=== PATIENT | female | born 1995 | race Caucasian/White ===

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

== ENCOUNTER → 2017-06-06 | Outpatient (REF) | payer OTHER ==
[2017-06-06 20:26] LABS: APPEARANCE, URINE MANUAL TURBID (CLEAR); COLOR, URINE MANUAL RED (YELLOW)
[2017-06-06 20:27] LABS: GLUCOSE, URINE (UA) MANUAL OBSCURED mg/dL (NEGATIVE); KETONE, URINE MANUAL OBSCURED mg/dL (NEGATIVE); PH,URINE MAN OBSCURED UNITS (5.0 - 7.0); PROTEIN, URINE MANUAL OBSCURED mg/dL (NEGATIVE); UROBILINOGEN, URINE MANUAL OBSCURED mg/dl (NORMAL)
[2017-06-06 20:28] LABS: BILIRUBIN, URINE MANUAL OBSCURED (NEGATIVE); BLOOD URINE MANUAL OBSCURED (NEGATIVE); LEUKOCYTE ESTERASE, URINE MAN OBSCURED (NEGATIVE); MICROSCOPIC INDICATED? MAN YES (NO); NITRITE, URINE MANUAL OBSCURED (NEGATIVE)
[2017-06-06 20:43] LABS: BACTERIA, URINE SMALL AMOUNT; HYALINE CAST, URINE NONE SEEN /lpf (0-1); SQUAMOUS EPITHELIAL CELL URINE SMALL AMOUNT /hpf (SMALL AMT)
[2017-06-06 20:45] LABS: MICROSCOPIC EXAM PERFORMED
== END ==
LOC: M LAB REF 16:47
DX: N39.0 Urinary tract infection, site not specified (principal)
CPT/HCPCS: 81000

== ENCOUNTER → 2018-11-19 | Outpatient (REF) | payer OTHER | LOC: M LAB REF 17:04 | PROVIDERS: ATTEND Physician Assistant | DX: N30.01 Acute cystitis with hematuria (principal) ==

== ENCOUNTER 2019-03-13 17:42 | Emergency (ER) | payer BC, OTHER ==
[~2019-03-13] VITALS: Ht 170.2 cm; Wt 92.5 kg
[2019-03-13] MEDS ORDERED: NITR100C2 (17:50)
[2019-03-13] MEDS ORDERED: PHEN-501 (17:50)
[2019-03-13] MEDS ORDERED: TRI-TAB16 (17:50)
[2019-03-13 18:30] VITALS: BP 161/98
[2019-03-13 18:36] LABS: BASO # 0.1 10^3/uL (0.0-0.2); BASO % 0.7 % (0.0-1.0); EOS # 0.2 10^3/uL (0.0-0.5); EOS % 1.9 % (0.0-3.0); HEMATOCRIT 41.8 % (36.0-47.0); HEMOGLOBIN 13.5 g/dl (12.0-15.5); LYMPH # 2.6 10^3/uL (1.5-5.0); LYMPH % 22.4 % (24.0-44.0); MEAN CORPUSCULAR HEMOGLOBIN 27.6 pg (27.0-33.0); MEAN CORPUSCULAR HGB CONC 32.3 g/dl (32.0-36.5); MEAN CORPUSCULAR VOLUME 85.5 fl (80.0-96.0); MONO # 0.9 10^3/uL (0.0-0.8); MONO % 7.3 % (0.0-5.0); NEUTROPHILS # 7.9 10^3/uL (1.5-8.5); NEUTROPHILS % 67.3 % (36.0-66.0); PLATELET COUNT, AUTOMATED 342 10^3/uL (150-450); RED BLOOD COUNT 4.89 10^6/uL (4.00-5.40); WHITE BLOOD COUNT 11.8 10^3/uL (4.0-10.0)
[2019-03-13 18:37] LABS: BILIRUBIN, URINE MANUAL OBSCURED (NEGATIVE); GLUCOSE, URINE (UA) MANUAL OBSCURED mg/dL (NEGATIVE); KETONE, URINE MANUAL OBSCURED mg/dL (NEGATIVE); UROBILINOGEN, URINE MANUAL OBSCURED mg/dl (NORMAL)
[2019-03-13 18:39] LABS: BACTERIA, URINE MOD AMOUNT; HYALINE CAST, URINE NONE SEEN /lpf (0-1); RBC, URINE 0-1 /hpf (0-3); SQUAMOUS EPITHELIAL CELL URINE NONE SEEN /hpf (SMALL AMT)
[2019-03-13 19:02] LABS: ALBUMIN 3.9 GM/DL (3.2-5.2); ALT/SGPT 17 U/L (12-78); BILIRUBIN,DIRECT < 0.1 MG/DL (0.0-0.2); BILIRUBIN,TOTAL 0.3 MG/DL (0.2-1.0); MAGNESIUM LEVEL 2.1 MG/DL (1.8-2.4)
== END 2019-03-13 19:17 | disposition home or self-care (01) ==
LOC: M ED 17:42
DX: N39.0 Urinary tract infection, site not specified (principal); G43.909 Migraine, unspecified, not intractable, without status migrainosus; Z79.899 Other long term (current) drug therapy; Z79.3 Long term (current) use of hormonal contraceptives; Z79.2 Long term (current) use of antibiotics

== ENCOUNTER → 2021-04-28 | Outpatient (CLI) | payer OTHER, BC ==
[~2021-04-28] MED LIST: NITR100C2; PHEN-501; TRI-TAB16
[2021-04-28 13:30] LABS: ALBUMIN 3.8 GM/DL (3.2-5.2); ALT/SGPT 19 U/L (12-78); BILIRUBIN,TOTAL 0.2 MG/DL (0.2-1.0); BLOOD UREA NITROGEN 11 MG/DL (7-18); CALCIUM LEVEL 9.3 MG/DL (8.5-10.1); CARBON DIOXIDE LEVEL 22 MEQ/L (21-32); CHLORIDE LEVEL 112 MEQ/L (98-107); ESTRADIOL 32.3 PG/ML; FOLLICLE STIMULATING HORMONE 5.4 mIU/mL; FREE T4 0.97 NG/DL (0.76-1.46); GLOMERULAR FILTRATION RATE > 60.0 (>60); GLUCOSE, FASTING 87 MG/DL (70-100); LUTEINIZING HORMONE 6.4 mIU/mL; POTASSIUM SERUM 4.3 MEQ/L (3.5-5.1); PROGESTERONE 0.46 NG/ML; SODIUM LEVEL 143 MEQ/L (136-145); TESTOSTERONE 58 NG/DL (14-76); TOTAL PROTEIN 7.7 GM/DL (6.4-8.2)
[2021-04-28 14:40] LABS: HEMOGLOBIN A1c 5.2 %
[2021-04-29 14:09] LABS: INSULIN LEVEL 41.9 uIU/mL (2.6-24.9); TESTOSTERONE FREE (DIRECT) 2.1 pg/mL (0.0-4.2)
== END ==
LOC: M WUC 09:21
PROVIDERS: ATTEND Family Medicine
DX: N92.6 Irregular menstruation, unspecified (principal); R63.5 Abnormal weight gain

== ENCOUNTER → 2021-08-13 | Outpatient (CLI) | payer BC, OTHER ==
[~2021-08-13] MED LIST changes: +ISOVUE-370 76% 100ML VIAL As Ordered ONE
== END ==
LOC: M RAD 07:16
PROVIDERS: ATTEND Family Medicine
DX: E16.1 Other hypoglycemia (principal)

== ENCOUNTER → 2022-12-11 | Outpatient (REF) | payer BC, OTHER ==
[~2022-12-11] MED LIST changes: -ISOVUE-370 76% 100ML VIAL As Ordered ONE
[2022-12-11 20:56] LABS: GC DNA AMPLIFICATION NEGATIVE (NEGATIVE)
== END ==
LOC: M LAB REF 13:43
PROVIDERS: ATTEND Registered Nurse
DX: B37.31 Acute candidiasis of vulva and vagina (principal); Z11.3 Encounter for screening for infections with a predominantly sexual mode of transmission

== ENCOUNTER → 2023-01-04 | Outpatient (REF) | payer BC, OTHER | LOC: M LAB REF 16:46 | PROVIDERS: ATTEND Physician Assistant | DX: R30.0 Dysuria (principal) ==

== ENCOUNTER → 2023-01-27 | Outpatient (REF) | payer OTHER | LOC: M LAB REF 16:28 | PROVIDERS: ATTEND Family Medicine | DX: N39.0 Urinary tract infection, site not specified (principal) ==

== ENCOUNTER → 2023-02-01 | Outpatient (CLI) | payer BC, OTHER | LOC: M RAD 15:49 | PROVIDERS: ATTEND Family Medicine | DX: N20.0 Calculus of kidney (principal) ==

== ENCOUNTER → 2023-10-11 | Outpatient (CLI) | payer BC, OTHER ==
[2023-10-11 17:38] LABS: HEMATOCRIT 39.4 % (36.0-47.0); HEMOGLOBIN 12.8 g/dl (12.0-15.5); MEAN CORPUSCULAR HEMOGLOBIN 27.6 pg (27.0-33.0); MEAN CORPUSCULAR HGB CONC 32.5 g/dl (32.0-36.5); MEAN CORPUSCULAR VOLUME 85.1 fl (80.0-96.0); PLATELET COUNT, AUTOMATED 367 10^3/uL (150-450); RED BLOOD COUNT 4.63 10^6/uL (4.00-5.40); WHITE BLOOD COUNT 11.3 10^3/uL (4.0-10.0)
[2023-10-11 18:36] LABS: HIV 1&2 SCREEN NEGATIVE (NEGATIVE)
[2023-10-11 18:45] LABS: HEPATITIS C VIRUS ABY INDEX < 0.02 INDEX (<0.8)
[2023-10-11 19:18] LABS: GC DNA AMPLIFICATION NEGATIVE (NEGATIVE)
== END ==
LOC: M PLALAB 15:24
PROVIDERS: ATTEND Advanced Practice Midwife
DX: O99.211 Obesity complicating pregnancy, first trimester (principal)

== ENCOUNTER → 2023-11-08 | Outpatient (CLI) | payer OTHER | LOC: M PLALAB 11:45 | PROVIDERS: ATTEND Obstetrics & Gynecology | DX: Z34.80 Encounter for supervision of other normal pregnancy, unspecified trimester (principal) ==

== ENCOUNTER → 2024-01-04 | Outpatient (CLI) | payer MEDICAID, OTHER | LOC: M WHC 13:09 | PROVIDERS: ATTEND Obstetrics & Gynecology | DX: Z34.80 Encounter for supervision of other normal pregnancy, unspecified trimester (principal) ==

== ENCOUNTER → 2024-02-05 | Outpatient (CLI) | payer OTHER ==
[2024-02-05 14:27] LABS: HEMATOCRIT 33.9 % (36.0-47.0); HEMOGLOBIN 11.2 g/dl (12.0-15.5); MEAN CORPUSCULAR HEMOGLOBIN 28.9 pg (27.0-33.0); MEAN CORPUSCULAR VOLUME 87.4 fl (80.0-96.0); PLATELET COUNT, AUTOMATED 341 10^3/uL (150-450); RED BLOOD COUNT 3.88 10^6/uL (4.00-5.40); WHITE BLOOD COUNT 10.6 10^3/uL (4.0-10.0)
[2024-02-05 14:52] LABS: GLUCOSE CHALLENGE TEST 1 HOUR 96 MG/DL (LESS THAN 140)
[2024-02-05 15:40] LABS: GC DNA AMPLIFICATION NEGATIVE (NEGATIVE)
[2024-02-05 15:44] LABS: HIV 1&2 SCREEN NEGATIVE (NEGATIVE)
[2024-02-05 15:52] LABS: HEPATITIS C VIRUS ABY INDEX < 0.02 INDEX (<0.8)
== END ==
LOC: M PLALAB 10:30
PROVIDERS: ATTEND Obstetrics & Gynecology
DX: Z34.80 Encounter for supervision of other normal pregnancy, unspecified trimester (principal)

== ENCOUNTER → 2024-02-21 | Outpatient (CLI) | payer OTHER | LOC: M RAD 06:56 | PROVIDERS: ATTEND Advanced Practice Midwife | DX: O99.213 Obesity complicating pregnancy, third trimester (principal) ==

== ENCOUNTER → 2024-04-16 | Outpatient (REF) | payer OTHER | LOC: M PLALAB 08:44 | PROVIDERS: ATTEND Specialist | DX: Z36.85 Encounter for antenatal screening for Streptococcus B (principal); Z3A.36 36 weeks gestation of pregnancy ==

== ENCOUNTER 2024-04-30 13:42 | Outpatient (CLI) | payer OTHER ==
[~2024-04-30] VITALS: Ht 170.2 cm; Wt 103.6 kg
[2024-04-30] MEDS ORDERED: PRENTAB9 PO (14:02)
[2024-04-30 14:04] VITALS: BP 135/82
[2024-04-30] MEDS ORDERED: HOME MED LIST COMPLETE! XX SCH (14:05)
[2024-04-30 14:15] VITALS: BP 123/68
[2024-04-30 14:49] LABS: HEMATOCRIT 34.9 % (36.0-47.0); HEMOGLOBIN 11.4 g/dl (12.0-15.5); MEAN CORPUSCULAR HEMOGLOBIN 26.6 pg (27.0-33.0); MEAN CORPUSCULAR HGB CONC 32.7 g/dl (32.0-36.5); MEAN CORPUSCULAR VOLUME 81.4 fl (80.0-96.0); PLATELET COUNT, AUTOMATED 289 10^3/uL (150-450); RED BLOOD COUNT 4.29 10^6/uL (4.00-5.40); WHITE BLOOD COUNT 9.8 10^3/uL (4.0-10.0)
[2024-04-30 15:11] LABS: TOTAL PROTEIN,RANDOM URINE 16.7 MG/DL (0.0-14.0)
[2024-04-30 15:13] LABS: URIC ACID 4.1 MG/DL (3.1-7.8)
[2024-04-30 15:15] LABS: LDH LACTATE DEHYDROGENASE 128 U/L (120-246)
[2024-04-30 15:16] LABS: CREATININE,RANDOM URINE 74.8 MG/DL
[2024-04-30 15:16] LABS: ALBUMIN 2.7 G/DL (3.2-5.2); ALKALINE PHOSPHATASE 155 U/L (35-104); ALT/SGPT < 9 U/L (7.0-40); AST/SGOT 9 U/L (<34); BILIRUBIN,TOTAL 0.3 MG/DL (0.3-1.2); BLOOD UREA NITROGEN 9 MG/DL (9-23); CARBON DIOXIDE LEVEL 19 MMOL/L (20-31); CHLORIDE LEVEL 109 MMOL/L (98-107); CREATININE FOR GFR 0.51 MG/DL (0.55-1.30); GLOMERULAR FILTRATION RATE > 60.0 (>60); GLUCOSE, FASTING 115 MG/DL (60-100); POTASSIUM SERUM 3.8 MMOL/L (3.5-5.1); SODIUM LEVEL 139 MMOL/L (136-145); TOTAL PROTEIN 6.4 G/DL (5.7-8.2)
== END 2024-04-30 16:00 | disposition home or self-care (01) ==
LOC: M LDO 13:42
PROVIDERS: ATTEND Obstetrics & Gynecology
DX: O26.893 Other specified pregnancy related conditions, third trimester (principal); R03.0 Elevated blood-pressure reading, without diagnosis of hypertension; Z3A.38 38 weeks gestation of pregnancy
CPT/HCPCS: 36415; 59025; 80053; 82570; 83615; 84156; 84550; 85027; G0463